=== PATIENT | male | born 1990 | race African-American/Black ===

== ENCOUNTER 2017-06-13 16:41 | Emergency (ER) | payer OTHER ==
--- NOTE | 2017-06-13 17:43 | EDM.PDOC ---
ED HPI GENERAL MEDICAL PROBLEM - General Chief Complaint: Exposure to Heat or Cold Stated Complaint: PAIN IN TOES AND HANDS Time Seen by Provider: 06/13/17 16:50 Source of Information: Reports: Patient History Limitations: Reports: No Limitations - History of Present Illness INITIAL COMMENTS - FREE TEXT/NARRATIVE: History of present illness: [27-year-old male comes in with concerns of potential frostbite. Patient indicates he was at work during the recent cold snap and subsequently he developed a large blister on his right toe with discoloration and altered sensation as well as to his fingertips. His fingertips do not have the discoloration but they do have thickening of callus-like formation and significant decrease in sensation.] Review of systems: As per history of present illness and below otherwise all systems reviewed and negative. Past medical history: As per history of present illness and as reviewed below otherwise noncontributory. Surgical history: As per history of present illness and as reviewed below otherwise noncontributory. Social history: No reported history of drug or alcohol abuse. Family history: As per history of present illness and as reviewed below otherwise noncontributory. Physical exam: HEENT: Atraumatic, normocephalic, pupils reactive, negative for conjunctival pallor or scleral icterus, mucous membranes moist, throat clear, neck supple, nontender, trachea midline. Lungs: Clear to auscultation, breath sounds equal bilaterally, chest nontender. Heart: S1S2, regular, negative for clicks, rubs, or JVD. Abdomen: Soft, nondistended, nontender. Negative for masses or hepatosplenomegaly. Negative for costovertebral tenderness. Pelvis: Stable nontender. Genitourinary: Deferred. Rectal: Deferred. Extremities: Right great toe with a dc bitten appearance to the outer lateral edge that is clearly relatively recent, as well as 10 fingertips with varying stages of thickened callus type formation with decreased sensation. Neuro: Awake, alert, oriented. Cranial nerves II through XII unremarkable. Cerebellum unremarkable. Motor and sensory unremarkable throughout. Exam nonfocal. Diagnostics: [] Therapeutics: [] Impression: [Frostbite to multiple digits] Plan: [Antibiotics and Neurontin referral to Ortho] Definitive disposition and diagnosis as appropriate pending reevaluation and review of above. - Related Data Allergies Allergy/AdvReac Type Severity Reaction Status Date / Time shellfish derived Allergy Anaphylactic Verified 06/13/17 17:18 Shock Home Meds: Home Meds . [No Known Home Meds] 06/13/17 [History] ED ROS GENERAL - Review of Systems Review Of Systems: See Below (See history of present illness) ED EXAM, GENERAL - Physical Exam Exam: See Below (History of present illness) Course - Vital Signs Last Recorded V/S: Last Vital Signs Temp 36.6 C 06/13/17 17:18 Pulse 62 06/13/17 17:18 Resp 16 06/13/17 17:18 BP 114/26 L 06/13/17 17:18 Pulse Ox 97 06/13/17 17:18 Departure - Departure Time of Disposition: 17:40 Disposition: Home, Self-Care 01 Condition: Good Clinical Impression: Frostbite of both hands, Frostbite of both great toes - Discharge Information Referrals: PCP,None [Primary Care Provider] - Additional Instructions: The following information is given to patients seen in the emergency department who are being discharged to home. This information is to outline your options for follow-up care. We provide all patients seen in our emergency department with a follow-up referral. The need for follow-up, as well as the timing and circumstances, are variable depending upon the specifics of your emergency department visit. If you don't have a primary care physician on staff, we will provide you with a referral. We always advise you to contact your personal physician following an emergency department visit to inform them of the circumstance of the visit and for follow-up with them and/or the need for any referrals to a consulting specialist. The emergency department will also refer you to a specialist when appropriate. This referral assures that you have the opportunity for follow-up care with a specialist. All of these measure are taken in an effort to provide you with optimal care, which includes your follow-up. Under all circumstances we always encourage you to contact your private physician who remains a resource for coordinating your care. When calling for follow-up care, please make the office aware that this follow-up is from your recent emergency room visit. If for any reason you are refused follow-up, please contact the [facility] Emergency Department at and asked to speak to the emergency department charge nurse. You're being provided with antibiotics as discussed to help with a potential secondary infection from your frostbite and as the sequelae that accompanies frostbite You're being provided with a nerve pain medication Please follow-up with orthopedics for potential debridement of the affected areas Return to ER as needed as discussed
== END 2017-06-13 18:07 | disposition home or self-care (01) ==
LOC: MW.ED 16:41
DX: T33.522A Superficial frostbite of left hand, initial encounter (principal); T33.521A Superficial frostbite of right hand, initial encounter; T33.832A Superficial frostbite of left toe(s), initial encounter; T33.831A Superficial frostbite of right toe(s), initial encounter; Z91.013 Allergy to seafood; X31.XXXA Exposure to excessive natural cold, initial encounter
CPT/HCPCS: 99283

== ENCOUNTER 2019-03-21 07:55 | Emergency (ER) | payer OTHER ==
[2019-03-21] MEDS ORDERED: Pantoprazole 40 MG Tab.CR PO ONE (08:05)
[2019-03-21] MEDS ORDERED: Ketorolac 60 MG/2 ML SDV IM ONE (08:06)
[2019-03-21] MEDS ORDERED: Alum Hydrox/Mag Hydrox/Simeth 15 ML, Metoclopramide 5 MG, Lidocaine 2% 5 ML PO ONE ×3 (08:06)
--- NOTE | 2019-03-21 08:10 | EDM.PDOC ---
ED HPI GENERAL MEDICAL PROBLEM - General Chief Complaint: Chest Pain Stated Complaint: CHEST PAIN Time Seen by Provider: 03/21/19 08:01 - History of Present Illness INITIAL COMMENTS - FREE TEXT/NARRATIVE: HISTORY AND PHYSICAL: History of present illness: The patient is a healthy 28-year-old male who has no GI history or abdominal surgical history who presents with complaints of lower mid chest pain that started this morning after he woke up. The patient admits to me that he drinks daily and a large amount of alcohol as well as a large amount of caffeine and also does not always eat healthy foods and says that he did drink last night as he usually does and he slept the whole night woke up and was doing his morning activities when he experienced this mid lower chest pain. It did not radiate and it was not associated with nausea or vomiting and he has not had any black or bloody stools. He says he does not get heartburn and does not take much medications for gas problems and he has not had black or bloody stools. He says he has never had this discomfort before except when he had pneumonia. He's had no fevers cough or upper respiratory symptoms or congestion. He had a completely normal day yesterday and ate his normal foods and drink his alcohol before he went to bed last night. Is no extremity complaints and he has no back pain. He has not had Flank issues or pain and no urinary complaints. He describes the discomfort as just a pain and it is not acid-like or sharp. He doesn't smoke cigarettes and he has never had any cardiac or pulmonary history. The patient has told nursing that there is discomfort with movement of his trunk and arms but he did not state that to me. Review of systems: As per history of present illness and below otherwise all systems reviewed and negative. Past medical history: As per history of present illness and as reviewed below otherwise noncontributory. Surgical history: As per history of present illness and as reviewed below otherwise noncontributory. Social history: No reported history of drug or alcohol abuse. Family history: As per history of present illness and as reviewed below otherwise noncontributory. Physical exam: General: Well-developed well-nourished man who is nontoxic and speaking clearly and easily in the ED. He is cooperative and interactive and vital signs were noted by me. HEENT: Atraumatic, normocephalic, pupils reactive, negative for conjunctival pallor or scleral icterus, mucous membranes moist, throat clear, neck supple, nontender, trachea midline. Lungs: Clear to auscultation, breath sounds equal bilaterally, chest nontender. 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 Abdomen: Soft, nondistended, nontender. Negative for masses or hepatosplenomegaly. Negative for costovertebral tenderness. Pelvis: Stable nontender. Genitourinary: Deferred. Rectal: Deferred. Extremities: Atraumatic, negative for cords or calf pain. Neurovascular unremarkable. No pedal edema or leg asymmetry Neuro: Awake, alert, oriented. Cranial nerves II through XII unremarkable. Cerebellum unremarkable. Motor and sensory unremarkable throughout. Exam nonfocal. He is not tremulous Diagnostics: EKG chest x-ray CBC CMP amylase lipase troponin Therapeutics: Toradol IM Protonix by mouth GI cocktail The patient is currently pain-free in the ED and is walking around. I've advised him to reduce and/or quit alcohol use as well as caffeine use. I will give him Protonix for home and advised close follow-up of these symptoms. I've also advised him that he may use [id number] medications for musculoskeletal pain. Impression: Atypical chest pain/esophagitis, history of alcohol use Definitive disposition and diagnosis as appropriate pending reevaluation and review of above. Mid-Sternal Chest Pain Score (Numeric/FACES): 3 - Related Data Allergies Allergy/AdvReac Type Severity Reaction Status Date / Time shellfish derived Allergy Anaphylactic Verified 03/21/19 08:00 Shock Home Meds: Home Meds . [No Known Home Meds] 03/21/19 [History] Past Medical History - Past Health History Medical/Surgical History: Denies Medical/Surgical History - Infectious Disease History Infectious Disease History: Reports: Chicken Pox Social & Family History - Family History Family Medical History: Noncontributory - Tobacco Use Smoking Status *Q: Current Every Day Smoker Years of Tobacco use: 12 Packs/Tins Daily: 0.5 - Alcohol Use Days Per Week of Alcohol Use: 7 Number of Drinks Per Day: 10 Total Drinks Per Week: 70 - Recreational Drug Use Recreational Drug Use: No ED ROS GENERAL - Review of Systems Review Of Systems: ROS reveals no pertinent complaints other than HPI. ED EXAM, GENERAL - Physical Exam Exam: See Below (See dictation) Course - Vital Signs Last Recorded V/S: Last Vital Signs Temp 36.3 C 03/21/19 07:57 Pulse 96 03/21/19 07:57 Resp 18 03/21/19 07:57 BP 158/77 H 03/21/19 07:57 Pulse Ox 96 03/21/19 07:57 - Orders/Labs/Meds Orders: Active Orders 24 hr Category Date Time Status EKG 12 Lead [EKG Documentation Completion] [RC] STAT Care 03/21/19 07:57 Active Labs: Laboratory Tests 03/21/19 03/21/19 Range/Units 08:17 08:17 WBC 4.18 (4.0-11.0) K/uL RBC 4.57 (4.50-5.90) M/uL Hgb 13.5 (13.0-17.0) g/dL Hct 40.0 (38.0-50.0) % MCV 87.5 (80.0-98.0) fL MCH 29.5 (27.0-32.0) pg MCHC 33.8 (31.0-37.0) g/dL RDW Std Deviation 44.8 (28.0-62.0) fl RDW Coeff of Kathy 14 (11.0-15.0) % Plt Count 250 (150-400) K/uL MPV 9.20 (7.40-12.00) fL Neut % (Auto) 33.9 L (48.0-80.0) % Lymph % (Auto) 47.4 H (16.0-40.0) % [place] % (Auto) 9.6 (0.0-15.0) % Eos % (Auto) 8.9 H (0.0-7.0) % Baso % (Auto) 0.2 (0.0-1.5) % Neut # (Auto) 1.4 (1.4-5.7) K/uL Lymph # (Auto) 2.0 (0.6-2.4) K/uL [place] # (Auto) 0.4 (0.0-0.8) K/uL Eos # (Auto) 0.4 (0.0-0.7) K/uL Baso # (Auto) 0.0 (0.0-0.1) K/uL Nucleated RBC % 0.0 /100WBC Nucleated RBCs # 0 K/uL Sodium 142 (136-148) mmol/L Potassium 3.9 (3.5-5.1) mmol/L Chloride 103 (98-107) mmol/L Carbon Dioxide 28.6 (21.0-32.0) mmol/L BUN 9 (7.0-18.0) mg/dL Creatinine 1.0 (0.8-1.3) mg/dL Est Cr Clr Drug Dosing 115.04 mL/min Estimated GFR (MDRD) > 60.0 ml/min Glucose 84 (74-106) mg/dL Calcium 8.4 L (8.5-10.1) mg/dL Total Bilirubin 0.3 (0.2-1.0) mg/dL AST 59 H (15-37) IU/L ALT 62 (14-63) IU/L Alkaline Phosphatase 48 (46-116) U/L Troponin I < 0.050 (0.000-0.056) ng/mL Total Protein 7.7 (6.4-8.2) g/dL Albumin 4.0 (3.4-5.0) g/dL Globulin 3.7 (2.6-4.0) g/dL Albumin/Globulin Ratio 1.1 (0.9-1.6) Amylase 66 (25-115) U/L Lipase 72 L (73-393) U/L Meds: Medications Discontinued Medications Generic Name Dose Route Start Last Admin Trade Name Freq PRN Reason Stop Dose Admin Al Hydroxide/Mg Hydroxide Confirm 03/21/19 08:22 03/21/19 08:56 Mag-Al Plus Administered 03/21/19 08:23 Not Given Dose 30 ml .ROUTE .STK-MED ONE Al Hydroxide/Mg Hydroxide 15 0 ml 03/21/19 08:06 03/21/19 08:24 ml/ Metoclopramide HCl 5 mg/ PO 03/21/19 08:07 1 each Lidocaine HCl 5 ml ONETIME ONE Administration Ketorolac Tromethamine 60 mg 03/21/19 08:06 03/21/19 08:19 Toradol IM 03/21/19 08:07 60 mg ONETIME ONE Administration Lidocaine HCl Confirm 03/21/19 08:22 03/21/19 08:56 Xylocaine 2% Viscous Administered 03/21/19 08:23 Not Given Dose 15 ml .ROUTE .STK-MED ONE Metoclopramide HCl Confirm 03/21/19 08:22 03/21/19 08:56 Reglan Administered 03/21/19 08:23 Not Given Dose 10 mg .ROUTE .STK-MED ONE Pantoprazole Sodium 40 mg 03/21/19 08:05 03/21/19 08:19 Protonix PO 03/21/19 08:06 40 mg ONETIME ONE Administration Departure - Departure Time of Disposition: 08:59 Disposition: Home, Self-Care 01 Condition: Good Clinical Impression: Atypical chest pain, Esophagitis - Discharge Information Forms: ED Department Discharge Additional Instructions: The following information is given to patients seen in the emergency department who are being discharged to home. This information is to outline your options for follow-up care. We provide all patients seen in our emergency department with a follow-up referral. The need for follow-up, as well as the timing and circumstances, are variable depending upon the specifics of your emergency department visit. If you don't have a primary care physician on staff, we will provide you with a referral. We always advise you to contact your personal physician following an emergency department visit to inform them of the circumstance of the visit and for follow-up with them and/or the need for any referrals to a consulting specialist. The emergency department will also refer you to a specialist when appropriate. This referral assures that you have the opportunity for followup care with a specialist. All of these measure are taken in an effort to provide you with optimal care, which includes your followup. Under all circumstances we always encourage you to contact your private physician who remains a resource for coordinating your care. When calling for followup care, please make the office aware that this follow-up is from your recent emergency room visit. If for any reason you are refused follow-up, please contact the [facility] emergency department at and ask to speak to the emergency department charge nurse. [facility] Primary care- Internal Medicine and Family [address] [address] Please use the Protonix that you're prescribed as directed and try to reduce and /or quit alcohol and caffeine use. You may start your prescription of Protonix tomorrow. Try to eat healthy foods and push hydration. Call and schedule a follow-up appointment with your provider or one of hours and return to ER as needed and as discussed - My Orders Last 24 Hours: My Active Orders 03/21/19 07:57 EKG 12 Lead [EKG Documentation Completion] [RC] STAT - Assessment/Plan Last 24 Hours: My Active Orders 03/21/19 07:57 EKG 12 Lead [EKG Documentation Completion] [RC] STAT
[2019-03-21] MEDS ORDERED: Lidocaine 2% Viscous Solution 15 ML Cup ONE (08:22)
[2019-03-21] MEDS ORDERED: Aluminum Hydroxide/Magnesium Hydroxide/Simethicone Susp 30 ML Cup ONE (08:22)
[2019-03-21] MEDS ORDERED: Metoclopramide Oral Soln 10 MG/10 ML UD Cup ONE (08:22)
[2019-03-21 08:47] LABS: BLOOD UREA NITROGEN,BUN 9 mg/dL (7.0-18.0); CARBON DIOXIDE,CO2 28.6 mmol/L (21.0-32.0); CHLORIDE,CL 103 mmol/L (98-107); GLUCOSE RANDOM 84 mg/dL (74-106); LIPASE 72 U/L (73-393); POTASSIUM,K 3.9 mmol/L (3.5-5.1); SODIUM,NA 142 mmol/L (136-148)
--- NOTE | 2019-03-21 08:57 | CR ---
INDICATION: Shortness of breath. Cough. Technique PA and lateral chest x-ray. FINDINGS: Heart size normal. Lungs clear without infiltrate or consolidation. Chest otherwise negative without acute disease. Dictated by Bolivar Pickens MD @ Mar 21 2019 8:53AM Signed by Dr. Bolivar Pickens @ Mar 21 2019 8:54AM
== END 2019-03-21 09:05 | disposition home or self-care (01) ==
LOC: MW.ED 07:55
DX: R07.89 Other chest pain (principal); K20.9 Esophagitis, unspecified; F17.210 Nicotine dependence, cigarettes, uncomplicated
CPT/HCPCS: 36415; 71046; 80053; 82150; 83690; 84484; 85025; 93005; 96372; 99285; A9270; J1885